=== PATIENT | male | born 1945 | race Caucasian/White ===

== ENCOUNTER 2018-02-12 12:09 | Emergency (ER) | payer MEDICARE, BC ==
[~2018-02-12] VITALS: Ht 177.8 cm; Wt 134.5 kg
[2018-02-12 12:13] VITALS: BP 164/70; TEMP 98.8
[2018-02-12] MEDS ORDERED: PLAVIX 75MG TAB75 MG PO (12:51)
[2018-02-12] MEDS ORDERED: LEXAPRO20 MG PO (12:51)
[2018-02-12] MEDS ORDERED: MYRBETR50MG PO (12:51)
[2018-02-12] MEDS ORDERED: CARDIZEM120 MG PO (12:51)
[2018-02-12] MEDS ORDERED: LOFIBRA160 MG PO (12:52)
[2018-02-12] MEDS ORDERED: AVODART 0.5MG0.5 MG PO (12:52)
[2018-02-12] MEDS ORDERED: CRESTOR20 MG PO (12:52)
[2018-02-12] MEDS ORDERED: FLOMAX 0.40.4 MG/CAP PO (12:53)
[2018-02-12] MEDS ORDERED: GLUMETZA1000 MG PO (12:53)
[2018-02-12] MEDS ORDERED: NEURONTIN600 MG/TAB PO (12:54)
[2018-02-12] MEDS ORDERED: DEMADEX 20MG20 M1 PO (12:54)
[2018-02-12] MEDS ORDERED: HUMULIN 70/30 PE3 ML SQ (12:55)
[2018-02-12] MEDS ORDERED: HUMULIN N PE100 U/ML SQ (12:55)
[2018-02-12] MEDS ORDERED: TRESIBA FL100 UNIT/1 SQ ×2 (12:56)
[2018-02-12] MEDS ORDERED: VITAMIN B12 681 TAB PO (12:57)
[2018-02-12] MEDS ORDERED: ASPIRIN 81M81 MG/TA2 PO (13:01)
[2018-02-12] MEDS ORDERED: NIACIN500 M4 PO (13:01)
[2018-02-12] MEDS ORDERED: EPA FISH OIL1 SGL PO (13:01)
[2018-02-12] MEDS ORDERED: PROFERRIN ES12 MG PO (13:02)
[2018-02-12] MEDS ORDERED: COENZYME Q-10200 M1 PO (13:03)
[2018-02-12] MEDS ORDERED: TYLENOL 500MG500 MG PO (13:03)
[2018-02-12 13:38] VITALS: PULSE 92
== END 2018-02-12 13:40 | disposition home or self-care (01) ==
LOC: COL.ER 12:09
DX: K56.41 Fecal impaction (principal); Z79.02 Long term (current) use of antithrombotics/antiplatelets; Z79.4 Long term (current) use of insulin